=== PATIENT | male | born 1985 | race Caucasian/White ===

== ENCOUNTER 2023-05-10 14:11 | Emergency (ER) | payer BC, MEDICAID ==
[~2023-05-10] VITALS: Ht 175.3 cm; Wt 95.0 kg
[2023-05-10 14:17] VITALS: O2SAT 99
[2023-05-10] MEDS ORDERED: ASPIRIN 325MG TABLET PO ONE (14:45)
[2023-05-10] MEDS ORDERED: LORAZEPAM 0.5MG TABLET PO ONE (14:45)
[2023-05-10 14:56] LABS: CHLORIDE 111 mEq/L (98-107)
[2023-05-10 14:57] LABS: BASOPHILS % 0.3 % (0.0-2.0); HEMATOCRIT. 45.8 % (42.0-52.0); HEMOGLOBIN. 15.8 g/dL (14.0-18.0); LYMPHOCYTES % 31.8 % (20.0-50.0); MEAN CORPUSCULAR HEMOGLOBIN 30.4 pg (28.0-32.0); MEAN CORPUSCULAR VOLUME 88.4 fL (80.0-94.0); MEAN PLATELET VOLUME 9.4 fl (7.4-10.4); MONOCYTES % 6.5 % (2.0-8.0); NEUTROPHILS % 59.4 % (40.0-76.0); PLATELET 248 x1000/uL (130-400); RED BLOOD CELL COUNT 5.18 mill/uL (4.7-6.1); RED CELL DISTRIBUTION WIDTH 12.8 % (11.6-14.6)
[2023-05-10 15:15] LABS: PROTHROMBIN TIME 10.3 sec (9.6-11.0)
[2023-05-10] MEDS ORDERED: LORAZEPAM 1MG TABLET PO ONE (16:30)
[2023-05-10] MEDS ORDERED: LORAZEPAM 1MG TABLET PO NR (17:00)
[2023-05-10 18:15] VITALS: BP 123/72; PULSE 83; RESP 16; TEMP 98.7
== END 2023-05-10 18:16 | disposition home or self-care (01) ==
LOC: ER 14:42
DX: R07.89 Other chest pain (principal)
CPT/HCPCS: 36415; 71045; 80053; 84484; 85025; 99284